=== PATIENT | female | born 1980 | race African-American/Black ===

== ENCOUNTER 2020-02-26 15:49 | Outpatient (CLI) | payer MEDICAID ==
--- NOTE | 2020-02-26 16:28 | ULT ---
Pelvic sonogram transabdominal and transvaginal imaging with duplex evaluation HISTORY: metromenorrhagia. Fibroids. FINDINGS: Urinary bladder is decompressed without focal abnormality. Uterus is retroverted and measur es up to 7.3 cm. There is a slightly heterogeneous echotexture but no mass evident. Endometrium is 0.6 cm. Physiologic amount of free fluid within the cul-de-sac. Right ovary is 3.5 cm length and left 2.7 cm. Each has a normal appearance with small follicles and g ood color and spectral Doppler flow. IMPRESSION : Retroverted uterus. No fibroids or other abnormalities are demonstrated.
== END 2020-02-26 15:50 | disposition home or self-care (01) ==
LOC: BICULT 15:49
PROVIDERS: ATTEND Nurse Practitioner Women's Health
DX: Z86.018 Personal history of other benign neoplasm (principal)
CPT/HCPCS: 76856

== ENCOUNTER 2020-05-31 16:30 | Emergency (ER) | payer MEDICAID ==
[2020-05-31 22:37] LABS: SARS-CoV-2 PCR by NAA Not Detected (NotDetected)
== END 2020-05-31 17:40 | disposition home or self-care (01) ==
LOC: ERS 16:30
DX: R09.89 Other specified symptoms and signs involving the circulatory and respiratory systems (principal); R05 Cough; Z20.822 Contact with and (suspected) exposure to COVID-19; I10 Essential (primary) hypertension
CPT/HCPCS: 87635; 99283; U0003; U0005

== ENCOUNTER 2021-01-24 18:30 | Emergency (ER) | payer MEDICAID ==
[2021-01-24] MEDS ORDERED: Lidocaine Viscous Sol 2% 15 ml UD Cup ONE (19:56)
[2021-01-24] MEDS ORDERED: Mag-Al 1200 mg/1200 mg/30 ML UDCUP ONE (19:56)
[2021-01-24 20:21] LABS: #Basophils 0.1 thou/uL (0.0-0.2); #Eosinphils 0.1 thou/uL (0.0-0.7); #Lymphocytes 2.9 thou/uL (1.20-3.40); #Monocytes 0.8 thou/uL (0.11-0.59); #Neutrophils 4.6 thou/uL (1.40-6.50); %Basophils 0.7 % (0.0-1.0); %Eosinophils 0.9 % (0.0-10.0); %Lymphocytes 34.3 % (21.0-51.0); %Monocytes 9.2 % (0.0-10.0); %Neutrophils 54.9 % (42.0-75.0); Hemoglobin 12.5 g/dL (12.0-16.0); Mean Corpuscular HGB CONC 31.8 g/dL (32.0-36.0); Mean Corpuscular Volume 84.8 fL (78.0-98.0); Mean Platelet Volume 8.4 fL (7.4-10.4); Platelet Count 329 thou/uL (130-400); RBC Distribution Width 12.4 % (11.5-14.5); Red Blood Cell (RBC) Count 4.64 mill/uL (4.20-5.40); White Blood Cell (WBC) Count 8.4 thou/uL (4.8-10.8)
[2021-01-24 20:22] LABS: BHCG - Serum Negative (NEGATIVE); Pregs Control Background? CLEAR/WHITE (CLR/WHITE); Pregs Control Bar Appear? YES (CONTROL BAR)
[2021-01-24 20:37] LABS: ALT (SGPT) 20 U/L (8-55); AST (SGOT) 15 U/L (5-34); Alkaline Phosphatase 80 U/L (40-110); Anion Gap 10 mmol/L (10-20); BUN (Urea Nitrogen) 14 mg/dL (7.0-18.7); Bilirubin, Total 0.2 mg/dL (0.2-1.2); Calc. Creatinine Clearance 0 mL/min (70-130); Calcium 9.4 mg/dL (7.8-10.44); Carbon Dioxide 29 mmol/L (22-29); Chloride 106 mmol/L (98-107); Globulin 2.7 g/dL (2.4-3.5); Glucose 94 mg/dL (70-105); Lipase 12 U/L (8-78); Potassium 3.7 mmol/L (3.5-5.1); Protein, Total 6.7 g/dL (6.0-8.3); Sodium 141 mmol/L (136-145)
[2021-01-24 21:04] LABS: Bilirubin Negative (Negative); Blood, Urine 3+ (Negative); Clarity Clear (Clear); Glucose, Urine (Dipstick) Normal (Negative); Ketone, Urine Negative (Negative); Leukocyte Negative Leu/uL (Negative); Nitrite Negative (Negative); Protein, Urine (Dipstick) 20 mg/dL (Neg-Trace); RBC/HPF Greater than 50 HPF (0-3); Specific Gravity, Urine 1.023 (1.002-1.036); Squamous Epithelial 0-3 HPF (0-3); Urobilinogen Normal mg/dL (Less than 2)
[2021-01-24 21:05] LABS: Bacteria/HPF Rare-Few HPF (None Seen)
== END 2021-01-24 22:06 | disposition home or self-care (01) ==
LOC: ERS 18:30
DX: R10.13 Epigastric pain (principal); R10.12 Left upper quadrant pain; I10 Essential (primary) hypertension
CPT/HCPCS: 36415; 80053; 81003; 81015; 83690; 84703; 85025; 87086; 99284

== ENCOUNTER 2021-09-19 16:29 | Emergency (ER) | payer MEDICAID ==
[2021-09-19] MEDS ORDERED: Acetaminophen 500 MG TAB ONE (17:12)
[2021-09-19 17:38] LABS: #Basophils 0.1 thou/uL (0.0-0.2); #Eosinphils 0.1 thou/uL (0.0-0.7); #Lymphocytes 2.4 thou/uL (1.20-3.40); #Monocytes 0.5 thou/uL (0.11-0.59); #Neutrophils 4.6 thou/uL (1.40-6.50); %Basophils 1.2 % (0.0-1.0); %Lymphocytes 31.3 % (21.0-51.0); %Monocytes 6.9 % (0.0-10.0); %Neutrophils 59.6 % (42.0-75.0); Hemoglobin 13.8 g/dL (12.0-16.0); Mean Corpuscular HGB CONC 31.8 g/dL (32.0-36.0); Mean Corpuscular Hemoglobin 27.8 pg (27.0-31.0); Mean Corpuscular Volume 87.5 fL (78.0-98.0); Mean Platelet Volume 7.8 fL (7.4-10.4); Platelet Count 319 thou/uL (130-400); Red Blood Cell (RBC) Count 4.97 mill/uL (4.20-5.40); White Blood Cell (WBC) Count 7.8 thou/uL (4.8-10.8)
[2021-09-19 17:46] LABS: BHCG - Serum Negative (NEGATIVE); Pregs Control Background? CLEAR/WHITE (CLR/WHITE); Pregs Control Bar Appear? YES (CONTROL BAR)
[2021-09-19 17:52] LABS: ALT (SGPT) 14 U/L (8-55); AST (SGOT) 13 U/L (5-34); Albumin 4.1 g/dL (3.5-5.0); Alkaline Phosphatase 85 U/L (40-110); Anion Gap 11 mmol/L (10-20); BUN (Urea Nitrogen) 10 mg/dL (7.0-18.7); Bilirubin, Total 0.3 mg/dL (0.2-1.2); Calc. Creatinine Clearance 0 mL/min (70-130); Calcium 9.3 mg/dL (7.8-10.44); Carbon Dioxide 28 mmol/L (22-29); Chloride 106 mmol/L (98-107); Globulin 3.1 g/dL (2.4-3.5); Glucose 79 mg/dL (70-105); Lipase 7 U/L (8-78); Potassium 3.3 mmol/L (3.5-5.1); Protein, Total 7.2 g/dL (6.0-8.3); Sodium 142 mmol/L (136-145)
[2021-09-19 18:25] LABS: Bilirubin Negative (Negative); Blood, Urine 1+ (Negative); Clarity Turbid (Clear); Glucose, Urine (Dipstick) Normal (Negative); Ketone, Urine Negative (Negative); Leukocyte 75 Leu/uL (Negative); Nitrite Negative (Negative); Protein, Urine (Dipstick) 10 mg/dL (Neg-Trace); RBC/HPF 0-3 HPF (0-3); Specific Gravity, Urine 1.025 (1.002-1.036); pH, Urine 6.5 (5.0-9.0)
[2021-09-19 18:28] LABS: Bacteria/HPF 1+ HPF (None Seen)
== END 2021-09-19 19:04 | disposition home or self-care (01) ==
LOC: ERS 16:29
DX: K76.89 Other specified diseases of liver (principal); R30.0 Dysuria; E78.5 Hyperlipidemia, unspecified; I10 Essential (primary) hypertension
CPT/HCPCS: 36415; 74176; 80053; 81003; 81015; 83690; 84703; 85025

== ENCOUNTER 2022-04-05 06:29 | Emergency (ER) | payer BC, MEDICAID ==
[2022-04-05 07:52] LABS: SARS-CoV-2 NAA Rapid Test DETECTED (NotDetected)
== END 2022-04-05 08:50 | disposition home or self-care (01) ==
LOC: ERS 06:29
DX: U07.1 COVID-19 (principal); I10 Essential (primary) hypertension; E78.5 Hyperlipidemia, unspecified
CPT/HCPCS: 99283

== ENCOUNTER 2022-05-06 09:00 | Outpatient (CLI) | payer BC | END 2022-05-06 09:01 | disposition home or self-care (01) | LOC: MRI 09:00 → SCSMRI 09:01 | PROVIDERS: ATTEND Nurse Practitioner Family | DX: R16.0 Hepatomegaly, not elsewhere classified (principal); D18.03 Hemangioma of intra-abdominal structures | CPT/HCPCS: 74183 ==

== ENCOUNTER 2022-08-04 10:41 | Outpatient (CLI) | payer BC | END 2022-08-04 10:42 | disposition home or self-care (01) | LOC: NM 10:41 | PROVIDERS: ATTEND Internal Medicine | DX: R10.11 Right upper quadrant pain (principal) | CPT/HCPCS: 78227; A9537 ==

== ENCOUNTER 2024-03-25 17:35 | Inpatient (IN) | payer BC, SELFPAY ==
[2024-03-25 18:03] LABS: Bacteria/HPF None Seen HPF (None Seen); Bilirubin Negative (Negative); Blood, Urine Negative (Negative); CAUTI Indications for Culture Dysuria,urgency,freq; Clarity Clear (Clear); Glucose, Urine (Dipstick) Normal (Negative); Ketone, Urine Negative (Negative); Leukocyte 500 Leu/uL (Negative); Nitrite Negative (Negative); Pregnancy Test - Urine (BHCG) Negative (Negative); Protein, Urine (Dipstick) Negative (Neg-Trace); RBC/HPF 0-3 HPF (0-3); Specific Gravity, Urine 1.009 (1.002-1.036); Squamous Epithelial 0-3 HPF (0-3); Urobilinogen Normal mg/dL (Less than 2); WBC/HPF Greater than 50 HPF (0-3); pH, Urine 7.5 (5.0-9.0)
[2024-03-25 18:04] LABS: Pregu Control Background? CLEAR/WHITE (CLR/WHITE); Pregu Control Bar Appear? YES (CONTROL BAR); Specific Gravity 1.009 (1.002-1.036); Urine Culture Reflex Yes Yes
[2024-03-25 18:53] LABS: %Basophils 1.2 % (0.0-1.0); %Eosinophils 1.4 % (0.0-10.0); %Lymphocytes 34.3 % (21.0-51.0); %Monocytes 7.2 % (0.0-10.0); %Neutrophils 55.8 % (42.0-75.0); Hematocrit 38.5 % (36.0-47.0); Hemoglobin 12.6 g/dL (12.0-16.0); Mean Corpuscular HGB CONC 32.7 g/dL (32.0-36.0); Mean Corpuscular Hemoglobin 26.7 pg (27.0-31.0); Mean Corpuscular Volume 81.6 fL (78.0-98.0); Mean Platelet Volume 10.1 fL (7.4-10.4); Platelet Count 339 10x3/uL (130-400); RBC Distribution Width 13.3 % (11.5-14.5); Red Blood Cell (RBC) Count 4.72 mill/uL (4.20-5.40)
[2024-03-25 19:12] LABS: ALT (SGPT) 19 U/L (8-55); AST (SGOT) 26 U/L (5-34); Albumin 3.8 g/dL (3.5-5.0); Alkaline Phosphatase 73 U/L (40-110); Anion Gap 13 mmol/L (10-20); BUN (Urea Nitrogen) 11 mg/dL (7.0-18.7); Bilirubin, Total 0.4 mg/dL (0.2-1.2); Calc. Creatinine Clearance 0 mL/min (70-130); Calcium 9.3 mg/dL (7.8-10.44); Carbon Dioxide 28 mmol/L (22-29); Chloride 101 mmol/L (98-107); Estimated GFR 72; Globulin 3.2 g/dL (2.4-3.5); Glucose 106 mg/dL (70-105); Potassium 2.5 mmol/L (3.5-5.1); Sodium 139 mmol/L (136-145)
[2024-03-25] MEDS ORDERED: cefTRIAXone (ROCEPHIN) 1 GM VIAL ONE (20:05)
[2024-03-25] MEDS ORDERED: Potassium Chloride 20 MEQ TAB ONE (20:05)
[2024-03-25] MEDS ORDERED: Potassium Chloride 20 MEQ (100 mL) BAG ONE (20:05)
[2024-03-25] MEDS ORDERED: NS 0.9% w/ 20 MEQ KCL 1,000 ML ONE ×2 (20:09→22:30)
[2024-03-25] MEDS ORDERED: Potassium Bicarbonate/Cit Ac 20 MEQ TAB ONE (20:09)
[2024-03-25] MEDS ORDERED: Sodium Chloride 0.9% 100 ML ONE (20:10)
[2024-03-25] MEDS ORDERED: Ondansetron PF 4 MG/2 ML Vial IVP PRN (22:00)
[2024-03-25] MEDS ORDERED: Acetaminophen 325 MG TAB PO PRN (22:00)
[2024-03-25] MEDS ORDERED: Ondansetron ODT 4 MG TAB SL PRN (22:00)
[2024-03-25] MEDS ORDERED: traMADol HCl 50 MG TAB PO PRN (22:49)
[2024-03-25] MEDS: Phenazopyridine HCl 100 MG TAB PO SCH (23:41)
[2024-03-26 00:21] VITALS: BMI 29.8
[2024-03-26 00:40] LABS: Anion Gap 12 mmol/L (10-20); BUN (Urea Nitrogen) 11 mg/dL (7.0-18.7); Calc. Creatinine Clearance 109 mL/min (70-130); Carbon Dioxide 27 mmol/L (22-29); Chloride 107 mmol/L (98-107); Potassium 3.2 mmol/L (3.5-5.1); Sodium 143 mmol/L (136-145)
[2024-03-26 00:41] LABS: Calcium 8.1 mg/dL (7.8-10.44); Estimated GFR 93; Glucose 108 mg/dL (70-105); Magnesium 1.9 mg/dL (1.6-2.6)
[2024-03-26] MEDS: Potassium Chloride 20 MEQ TAB PO SCH ×2 (08:16→12:39)
[2024-03-26] MEDS: Magnesium 2 GM/50 ML(in water) 2 GM in Premix 1 BAG IVPB SCH (08:16)
[2024-03-26] MEDS: Phenazopyridine HCl 100 MG TAB PO SCH (08:16)
[2024-03-26 12:20] LABS: Potassium 3.2 mmol/L (3.5-5.1)
[2024-03-26] MEDS ORDERED: Potassium Chloride 20 MEQ TAB PO PRN (14:44)
[2024-03-26 17:16] VITALS: BP 128/81; TEMP 98
[2024-03-26] MEDS: FLU (Fluarix Triv) TS24-25(6MOS UP)/PF 45 MCG/0.5 ML Syringe IM ONE (18:09)
[2024-03-26] MEDS: cefTRIAXone\\ROCEPHIN 1 GM in Sodium Chloride 0.9% 100 ML IVPB SCH (18:20)
[2024-03-26 18:55] LABS: Potassium 3.5 mmol/L (3.5-5.1)
== END 2024-03-26 20:59 | disposition home or self-care (01) | DRG 690 ==
LOC: ERS 17:35 → OBS 21:54 → OBSVTOIN 03-26 10:10
PROVIDERS: ADMIT Student in an Organized Health Care Education/Training Program; ATTEND Internal Medicine
DX: N39.0 Urinary tract infection, site not specified (principal); E87.6 Hypokalemia; E83.42 Hypomagnesemia; E78.5 Hyperlipidemia, unspecified; Z88.1 Allergy status to other antibiotic agents; Z79.899 Other long term (current) drug therapy; Z98.890 Other specified postprocedural states; F41.9 Anxiety disorder, unspecified; N18.2 Chronic kidney disease, stage 2 (mild); I12.9 Hypertensive chronic kidney disease with stage 1 through stage 4 chronic kidney disease, or unspecified chronic kidney disease
CPT/HCPCS: 36415; 80053; 81001; 81025; 83735; 85025; 87077; 87086; 87186; 93005; J0696; J3475; J3480